=== PATIENT | male | born 1985 | race Caucasian/White ===

== ENCOUNTER 2018-06-27 21:01 | Emergency (ER) | payer MEDICAID ==
[~2018-06-27] VITALS: Ht 193 cm; Wt 140.6 kg
[2018-06-27 21:08] VITALS: BP 114/61
--- NOTE | 2018-06-27 21:23 | NUR ---
PT CAME INTO ER WITH C/O COUGH X 4 DAYS. PT HAS SOME MILD AUDIBLE WHEEZING. WHEEZING BILATERAL ON EXPERATORY AND INSPIRATORY. PT HAS HISTORY OF ASTHMA. PT STATES HE HAS BEEN HAVING DIFFICULTY BREATHING. PT O2 SAT IS AT 99 PERCENT ON RA. PT STATED HE HAS HX OF A MASS ON THE LEFT LUNG X 2 YEARS. PT DENIES N/V/D. PT IS A/OX4. ER MD MADE AWARE OF STATUS. SAFETY PRECAUTIONS IN PLACE, BED RAIL X1 IN PLACE.
--- NOTE | 2018-06-27 21:30 | NUR ---
CALLED FOR RT TO GIVE BREATHING TREATMENT PER MD ORDER.
--- NOTE | 2018-06-27 21:54 | NUR ---
X RAY AT PT BEDSIDE
[2018-06-27] MEDS ORDERED: predniSONE 20 MG TAB PO ONE (21:55)
[2018-06-27] MEDS ORDERED: ALBUTEROL SULFATE/IPRATROPIU 3 ML SOL IH ONE ×2 (21:55→23:10)
--- NOTE | 2018-06-27 22:12 | NUR ---
FLU SWAB DONE, LAB TO DIETETICS TEACHER
--- NOTE | 2018-06-27 22:16 | NUR ---
CALLED RT TO GIVE BREATHING TREATMENT. ER MADE AWARE
--- NOTE | 2018-06-27 23:16 | NUR ---
CALLED RT TO GIVE BREATHING TREATMENT FOR PT. HALIE GENAO MADE AWARE
[2018-06-27] MEDS ORDERED: ACETAMIN/CODEINE 120/12MG-5ML 5 ML UDC PO ONE (23:20)
--- NOTE | 2018-06-27 23:22 | NUR ---
RT IS AT PT BEDSIDE
[2018-06-28 00:35] VITALS: BP 123/75
--- NOTE | 2018-06-28 00:35 | NUR ---
Patient discharged with v/s stable. Written and verbal after care instructions given and explained. Patient alert, oriented and verbalized understanding of instructions. Ambulatory with steady gait. All questions addressed prior to discharge. ID band removed. Patient advised to follow up with PMD. Rx of PREDNISONE, ALBUTEROL, GUAIATUSSIN given. Patient educated on indication of medication including possible reaction and side effects. Opportunity to ask questions provided and answered.
== END 2018-06-28 00:35 | disposition home or self-care (01) ==
LOC: MED 21:01
DX: J20.9 Acute bronchitis, unspecified (principal); J45.909 Unspecified asthma, uncomplicated; Z87.891 Personal history of nicotine dependence
CPT/HCPCS: 71045; 87804; 94640; 99284; J7512; J7620

== ENCOUNTER 2020-05-04 16:21 | Emergency (ER) | payer MEDICAID ==
[~2020-05-04] VITALS: Ht 193 cm; Wt 149.7 kg
[2020-05-04 16:36] VITALS: BP 142/85
--- NOTE | 2020-05-04 16:45 | NUR ---
35/M BIB SELF C/O COUGH, SORE THROAT 11/02, DIFFICULTY BREATHING X 2 WEEKS. TEMP 97.7, P 73, R 18,O2SAT 97% AT THIS TIME PMH: ASTHMA Addendum: 05/04/20 at 1650 by [email or web address] C/O RIGHT CHEST PRESSURE
--- NOTE | 2020-05-04 16:49 | NUR ---
Patient being evaluated by MICHAEL JOHNSON at [facility].
[2020-05-04 17:41] VITALS: BP 142/85
--- NOTE | 2020-05-04 17:41 | NUR ---
Patient discharged with v/s stable. Written and verbal after care instructions given and explained. Patient alert, oriented and verbalized understanding of instructions. Ambulatory with steady gait. All questions addressed prior to discharge. ID band removed. Patient advised to follow up with PMD. Rx of VENTOLIN, PROMETHAZINE & PREDNISONE given. Patient educated on indication of medication including possible reaction and side effects. Opportunity to ask questions provided and answered.
== END 2020-05-04 17:41 | disposition home or self-care (01) ==
LOC: MED 16:21
DX: R05 Cough (principal); R03.0 Elevated blood-pressure reading, without diagnosis of hypertension; J45.909 Unspecified asthma, uncomplicated
CPT/HCPCS: 71045; 99283

== ENCOUNTER 2021-06-13 15:30 | Emergency (ER) | payer MEDICAID ==
[~2021-06-13] VITALS: Ht 193 cm; Wt 151.5 kg
[2021-06-13 15:43] VITALS: BP 129/72
[2021-06-13] MEDS ORDERED: NAPR-54 PO (16:04)
[2021-06-13] MEDS ORDERED: CEPH-588 PO (16:04)
[2021-06-13 16:15] VITALS: BP 129/72
--- NOTE | 2021-06-13 16:15 | NUR ---
NO NURSING INTERVENTIONS PROVIDED
--- NOTE | 2021-06-13 16:15 | NUR ---
Patient discharged with v/s stable. Written and verbal after care instructions ABOUT SKIN ABSCESS given and explained. Patient alert, oriented and verbalized understanding of instructions. Ambulatory with steady gait. All questions addressed prior to discharge. ID band removed. Patient advised to follow up with PMD. Rx of KEFLEX AND NAPROSYN given. Patient educated on indication of medication including possible reaction and side effects. Opportunity to ask questions provided and answered.
== END 2021-06-13 16:15 | disposition home or self-care (01) ==
LOC: MED 15:30
DX: S91.302A Unspecified open wound, left foot, initial encounter (principal); J45.909 Unspecified asthma, uncomplicated; Z79.899 Other long term (current) drug therapy; X58.XXXA Exposure to other specified factors, initial encounter; Y93.89 Activity, other specified; Y92.89 Other specified places as the place of occurrence of the external cause; Y99.8 Other external cause status
CPT/HCPCS: 99283